=== PATIENT | female | born 1970 ===

== ENCOUNTER 2018-01-29 06:00 | Day surgery (SDC) | payer SELFPAY ==
[2018-01-25 09:58] VITALS: BMI 33.9
[2018-01-29] MEDS ORDERED: ceFAZolin IV 1 gm in Dextrose 2 GM/100 ML BAG IVPB ONE (07:09)
[2018-01-29] MEDS ORDERED: Bupivacaine HCl 0.5% PF (30 ml) Inj ONE (07:09)
[2018-01-29] MEDS ORDERED: Lidocaine Hydrochloride 10 ML INJ ONE (07:09)
[2018-01-29] MEDS ORDERED: Propofol 10 mg/ml Inj (20 ML) ONE ×2 (07:41→08:25)
[2018-01-29] MEDS ORDERED: Midazolam 2 MG/2 ML VIAL ONE (07:41)
[2018-01-29] MEDS ORDERED: Lidocaine 2% w Epi 1:100,000 Inj IJ ONE (08:43)
--- NOTE | 2018-01-29 08:57 | PCM.SURG1 ---
Surgeon's Initial Post Op Note - Surgeon's Notes Surgeon: Dr. Her Service Order Taker: Dr. Chen PGY3 Type of Anesthesia: IV Sedation, Local Pre-Operative Diagnosis: Temporal Arteritis Operative Findings: See operative dictation Post-Operative Diagnosis: Temporal Arteritis Operation Performed: Temporal artery biopsy Specimen/Specimens Removed: Temporal Artery Segment Estimated Blood Loss: EBL {In ML}: 3 Blood Products Given: N/A Drains Used: No Drains Post-Op Condition: Good Date of Surgery/Procedure: 01/29/18 Time of Surgery/Procedure: 08:56
[2018-01-29] MEDS ORDERED: Lactated Ringer's 1,000 ML IV SCH (09:00)
[2018-01-29] MEDS ORDERED: Oxycodone/Acetaminophen 5/325 mg Tab PO PRN (09:01)
[2018-01-29 10:50] VITALS: RESP 18; TEMP 97.8; O2SAT 98
[2018-01-29 11:26] VITALS: BP 140/73; PULSE 72
--- NOTE | 2018-01-29 19:46 | OP ---
PROCEDURE DATE: 01/29/2018 PREOPERATIVE DIAGNOSIS: Suspected temporal arteritis. POSTOPERATIVE DIAGNOSIS: Suspected temporal arteritis. PROCEDURE CARRIED OUT: Right superficial temporal artery biopsy. SURGEON: Celestino Her Jr., MD POWDERED SUGAR PULVERIZER OPERATOR: Yousuf Chen DO TYPE OF ANESTHESIA: Local with sedation. ANESTHESIA ADMINISTERED BY: Dr. Brooks. INDICATIONS FOR PROCEDURE: A 47-year-old woman with elevated sedimentation rate, headaches, suspected to have temporal arteritis. OPERATIVE FINDINGS: No gross abnormalities in the vessel, 2 cm segment removed in the unretracted state. DESCRIPTION OF PROCEDURE: The patient was given local anesthesia. The artery had been marked out on the forehead. An incision was made, the vessel was ligated, controlled, specimen submitted. Hemostasis obtained. Wound closed with subcuticular closure and Steri- Strips. Blood loss during the procedure was less than 5 mL. OPERATION CARRIED OUT: Right superficial temporal artery biopsy. Celestino Her Jr., MD cc: Stephanie Young MD
== END 2018-01-29 11:28 | disposition home or self-care (01) ==
LOC: C.SDS 06:00
PROVIDERS: ATTEND Surgery Vascular Surgery
DX: M31.6 Other giant cell arteritis (principal)
CPT/HCPCS: 37609; 88305; J0690; J2250; J2704; J3010

== ENCOUNTER 2018-06-05 09:38 | Outpatient (CLI) | payer SELFPAY | END 2018-06-05 09:39 | disposition home or self-care (01) | LOC: C.LAB 09:38 | DX: E11.9 Type 2 diabetes mellitus without complications (principal); E55.9 Vitamin D deficiency, unspecified ==

== ENCOUNTER 2018-06-07 10:02 | Outpatient (CLI) | payer SELFPAY | END 2018-06-07 10:03 | disposition home or self-care (01) | LOC: C.DEXAIC 10:03 ==

== ENCOUNTER 2018-06-25 09:33 | Outpatient (CLI) | payer OTHER, SELFPAY | END 2018-06-25 09:34 | disposition home or self-care (01) | LOC: C.USIC 09:33 | DX: R22.1 Localized swelling, mass and lump, neck (principal) ==